=== PATIENT | male | born 1945 | race Two or more races ===

== ENCOUNTER → 2017-11-10 | Outpatient (CLI) | payer OTHER | LOC: CIMAGING 10:41 | PROVIDERS: ATTEND Internal Medicine Pulmonary Disease | DX: J98.4 Other disorders of lung (principal); J84.9 Interstitial pulmonary disease, unspecified; I25.83 Coronary atherosclerosis due to lipid rich plaque | CPT/HCPCS: 71250-PO ==

== ENCOUNTER 2018-10-03 09:48 | Inpatient (IN) | payer OTHER | END 2018-10-06 15:34 | disposition home health service (06) | LOC: CED 09:48 → CEDHOLD 11:40 → F3E 14:41 ==